=== PATIENT | female | born 2000 | race Hispanic/Latino ===

== ENCOUNTER 2020-01-24 20:19 | Emergency (ER) | payer OTHER, SELFPAY ==
[2020-01-24] MEDS ORDERED: Acetaminophen 500 MG TAB ONE ×2 (20:49→20:52)
[2020-01-25 12:57] LABS: SARS-CoV-2 MS2 Positive; SARS-CoV-2 N Gene Positive; SARS-CoV-2 S Gene Positive; SARS-CoV-2 orf1ab Positive
== END 2020-01-24 22:00 | disposition home or self-care (01) ==
LOC: ERS 20:19
DX: U07.1 COVID-19 (principal); J02.9 Acute pharyngitis, unspecified; R51 Headache; R53.83 Other fatigue; R05 Cough
CPT/HCPCS: 87635; 99283; U0003

== ENCOUNTER 2021-02-09 10:55 | Emergency (ER) | payer OTHER | END 2021-02-09 11:53 | disposition home or self-care (01) | LOC: ERS 10:55 | DX: N63.10 Unspecified lump in the right breast, unspecified quadrant (principal) | CPT/HCPCS: 99283 ==